=== PATIENT | male | born 1950 | race Caucasian/White ===

== ENCOUNTER 2019-01-30 05:36 | Emergency (ER) | payer OTHER ==
--- NOTE | 2019-01-30 06:07 | EDM.PDOC ---
ED HPI GENERAL MEDICAL PROBLEM - General Chief Complaint: Laceration Stated Complaint: lip laceration poss head and arm injury Time Seen by Provider: 01/30/19 05:50 Source of Information: Reports: Patient, RN Notes Reviewed - History of Present Illness INITIAL COMMENTS - FREE TEXT/NARRATIVE: 68-year-old male comes in with superficial laceration abrasion injury of right face just lateral to his nose in between the nose and upper lip. 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 Had no LOC but may have been dazed for just a few seconds. He also did suffer abrasion injury to his right forearm. He has no headache, neck or back pain. He has had no nausea or vomiting. He is mainly concerned about the injury to his face and not sure if it will need stitches or not. No dental injury. No bleeding from within the mouth.he - Related Data Allergies Allergy/AdvReac Type Severity Reaction Status Date / Time No Known Allergies Allergy Verified 01/30/19 05:43 Home Meds: Home Meds . [No Known Home Meds] 01/30/19 [History] Past Medical History - Past Health History Medical/Surgical History: Denies Medical/Surgical History Social & Family History - Tobacco Use Smoking Status *Q: Never Smoker - Recreational Drug Use Recreational Drug Use: No ED ROS GENERAL - Review of Systems Review Of Systems: See Below Constitutional: Reports: No Symptoms HEENT: Denies: Dental Pain, Ear Discharge, Nosebleed Respiratory: Denies: Pleuritic Chest Pain Cardiovascular: Denies: Chest Pain GI/Abdominal: Denies: Abdominal Pain, Nausea, Vomiting Neurological: Denies: Dizziness, Headache, Numbness, Tingling, Trouble Speaking ED EXAM, SKIN/RASH Exam: See Below General Appearance: Alert, No Apparent Distress Eye Exam: Bilateral Eye: PERRL Ears: Normal External Exam Nose: Normal Inspection Throat/Mouth: Normal Inspection, Normal Teeth, Other (no intraoral injury) Head: Other (2 cm very superfiscial laceration abrasion R face just below and lateral to nose). No: Facial Tenderness Neck: Supple, Non-Tender Respiratory/Chest: No Respiratory Distress, Lungs Clear Cardiovascular: Regular Rate, Rhythm Back Exam: Normal Inspection Extremities: Other (Superficial abrasion dorsal aspect right mid forearm, no bony tenderness. Elbow is nontender with good range of motion, no visible deformity.) Neurological: Alert, Oriented, No Motor/Sensory Deficits, Other (Finger to nose testing normal) Skin: Other (Facial laceration abrasion as noted above) Course - Vital Signs Last Recorded V/S: Last Vital Signs Temp 96.7 F 01/30/19 05:41 Pulse 58 L 01/30/19 05:41 Resp 16 01/30/19 05:41 BP 160/85 H 01/30/19 05:41 Pulse Ox 97 01/30/19 05:41 - Re-Assessments/Exams Free Text/Narrative Re-Assessment/Exam: 01/30/19 06:08 This laceration is very shallow, edges are in good position barely separable. Therefore I do not feel that suturing is going to provide any benefit in terms of long-term outcome. Patient prefers we go ahead and Steri-Strip it. I have informed him there will be scarring either way initially but that the scarring will be expected to fade out as time goes on. Departure - Departure Time of Disposition: 06:20 Disposition: Home, Self-Care 01 Condition: Fair Clinical Impression: Fall Qualifiers: Encounter type: initial encounter Qualified Code(s): W19.XXXA - Unspecified fall, initial encounter Facial laceration Qualifiers: Encounter type: initial encounter Qualified Code(s): S01.81XA - Laceration without foreign body of other part of head, initial encounter Forearm abrasion Qualifiers: Encounter type: initial encounter Laterality: right Qualified Code(s): S50.811A - Abrasion of right forearm, initial encounter - Discharge Information Instructions: Abrasion, [id number], Facial Laceration, [id number] Referrals: Emerson Gonzalez MD [Primary Care Provider] - Forms: ED Department Discharge, ED Return to Work/School Form Additional Instructions: Try keep the Steri-Strips on for about 5-7 days. Ice packs and elevation as needed for swelling. Try keep the Steri-Strips as dry as possible, otherwise they will tend to loosen and fall off more quickly. There will be some scarring from this injury initially but that will fade out over the next 1-2 months. Have rechecked any sign of infection.
== END 2019-01-30 06:22 | disposition home or self-care (01) ==
LOC: JD.ED 05:36
DX: S01.81XA Laceration without foreign body of other part of head, initial encounter (principal); S50.811A Abrasion of right forearm, initial encounter; W22.8XXA Striking against or struck by other objects, initial encounter
CPT/HCPCS: 99282